=== PATIENT | male | born 1965 | race Caucasian/White ===

== ENCOUNTER 2023-11-20 18:12 | Emergency (ER) | payer OTHER, SELFPAY ==
[2023-11-20 18:21] VITALS: BP 132/78; PULSE 57; RESP 16; TEMP 36.6; O2SAT 97; BMI 20.2
[2023-11-20 18:41] LABS: Appearance Urine Slightly Cloudy (Clear); Bilirubin Urine 1+ (Negative); Blood Urine 3+ (Negative); Color Urine Brown (Yellow); Glucose Urine Negative (Negative); Ketones Urine Trace (Negative); Leukocyte Esterase Urine Negative (Negative); Nitrite Urine Negative (Negative); Protein Urine 3+ (Negative); Specific Gravity Urine >= 1.030 (1.000-1.030); Urobilinogen Urine 0.2 (0.2-1.0)
[2023-11-20 19:00] LABS: Amorphous Sediment Urine Moderate; Bacteria Urine Many; RBC Urine >100 (0-2); Squamous Epithelial Cell Urine Few (None-Few); WBC Urine 0-2 (0-5)
--- NOTE | 2023-11-20 19:37 | CRLHL7_ITS ---
For Patients: As a result of the Century Cures Act, medical imaging exams and procedure reports are released immediately into your electronic medical record. You may view this report before your referring provider. If you have questions, please contact your health care provider. INDICATION: Hematuria TECHNIQUE: CT abdomen and pelvis acquired with 71 cc Isovue 370 IV contrast. Permanently recorded images are archived. COMPARISON: None. FINDINGS: Lower chest: Unremarkable. Liver: Few scattered simple hepatic cysts. Multiple other too small to characterize subcentimeter hypodense foci throughout the liver. Normal liver contour. Gallbladder and bile ducts: Contracted gallbladder. No stones or inflammation. No biliary dilatation. Pancreas: Unremarkable. No mass or inflammation. Spleen: Unremarkable. Normal in size. No masses. Adrenal glands: Unremarkable. No nodules. Kidneys, Ureters, and Bladder: Unremarkable. No suspicious masses, stones, or hydronephrosis. Unremarkable ureters and bladder. GI tract: Unremarkable. Normal in caliber. No sign of inflammation. Normal appendix. Vasculature: Abdominal aorta is normal in caliber. Mesenteric arteries are patent. Dilated main portal vein measuring 15 mm. Lymph nodes: No lymphadenopathy. Peritoneum/Abdominal Wall: Unremarkable. No free air or significant free fluid. Pelvis: Mild prostatomegaly. Bones: Unremarkable for age. IMPRESSION: 1. No findings to explain the patient`s hematuria. No urolith or evidence of obstructive uropathy. No acute findings within the abdomen and pelvis. 2. Mild prostatomegaly. 3. dilated main portal vein measuring 15 mm. This is of unclear clinical significance. No evidence for cirrhosis or other evidence for portal hypertension. Please note that all CT scans at this facility use dose modulation, iterative reconstruction, and/or weight-based dosing when appropriate to reduce radiation dose to as low as reasonably achievable. Dictated by Jeovany Flores MD @ 11/20/2023 8:33:27 PM (Electronically Signed)
--- NOTE | 2023-11-20 19:42 | ED_ITS ---
HPI - Male Genitourinary General Date Seen: 11/20/23 Chief complaint: Urogenital Problems, Male Stated complaint: dark urine Time Seen by Provider: 11/20/23 19:30 Source: patient Mode of arrival: ambulatory Limitations: no limitations History of Present Illness HPI Narrative: Patient is a 57-year-old male with no pertinent medical problems presenting to the emergency department for hematuria. He states shortly prior to arrival he went to the bathroom and noticed a large amount of blood in his urine. This has never happened before to him. States he did have some dizziness around this time also but states he has had chronic issues with vertigo and this did not seem any different than his baseline. He quit smoking about 20-30 years ago. Denies dysuria. Denies abdominal pain, chest pain, shortness of breath, lightheadedness, weakness, numbness. Has not had any constipation or diarrhea. Does take Zofran and Prilosec for his chronic GERD which she says feels like it was acting up prior to arrival but has since resolved. Related Data Home Medications Medication Instructions Recorded Confirmed ondansetron 4 mg disintegrating 4 mg PO Q8H PRN 11/20/23 11/20/23 tablet Allergies Allergy/AdvReac Type Severity Reaction Status Date / Time No Known Drug Allergies Allergy Verified 11/20/23 18:21 Review of Systems Status of ROS: Reports: 10 or more systems reviewed and unremarkable except as noted in History and below Exam Narrative: Exam Narrative: Const: Well-nourished, Well-developed, in no distress Eyes: PERRL, no conjunctival injection, and symmetrical lids HENT: Atraumatic external nose and ears. Moist mucous membranes. Neck: Symmetric, trachea midline, No thyromegaly. CVS: RRR, No murmurs or gallops. Peripheral pulses 2+ and equal in all extremities RESP: Unlabored respiratory effort. Clear to auscultation bilaterally. GI: Nontender/Nondistended, No rebound or guarding. MSK:Extremities w/o deformity, Normal Active ROM Skin: Warm, Dry. No rashes or lesions. Neuro: Normal Muscle tone, No focal neurological deficits. Psych: Awake, Alert, & Oriented x3. Appropriate mood and affect. Const: Vital Signs, click to edit/add: Vital Signs - 24 hr 11/20/23 18:21 Temperature 97.9 F Pulse Rate [Pulse Oximeter] 57 L Respiratory Rate 16 Blood Pressure [Ri ght Upper Arm] 132/78 Pulse Oximetry 97 Oxygen Delivery Me thod Room Air Course Vital Signs Vital signs: Initial Vital Signs Temperature 97.9 F 11/20/23 18:21 Temperature Source Temporal Artery Scan 11/20/23 18:21 Pulse Rate 57 L 11/20/23 18:21 Respiratory Rate 16 11/20/23 18:21 Blood Pressure 132/78 11/20/23 18:21 Blood Pressure Mean 96 11/20/23 18:21 Pulse Oximetry 97 11/20/23 18:21 Oxygen Delivery Method Room Air 11/20/23 18:21 Vital Signs Temperature 97.9 F 11/20/23 18:21 Pulse Rate 57 L 11/20/23 18:21 Respiratory Rate 16 11/20/23 18:21 Blood Pressure 132/78 11/20/23 18:21 Pulse Oximetry 97 11/20/23 18:21 Oxygen Delivery Method Room Air 11/20/23 18:21 Temperature 97.9 F 11/20/23 18:21 Pulse Rate 57 L 11/20/23 18:21 Respiratory Rate 16 11/20/23 18:21 Blood Pressure 132/78 11/20/23 18:21 Pulse Oximetry 97 11/20/23 18:21 Oxygen Delivery Method Room Air 11/20/23 18:21 MDM - Male Genitourinary MDM Narrative Medical decision making narrative: Patient is a 57-year-old male presenting for hematuria. His urinalysis showed a large amount of blood in his urine. We did do a CT scan of the abdomen pelvis to look for any signs that would causes hematuria. Also ordered coags, CBC, BMP. Lab work all returned showing no concerning abnormalities. No signs of acute kidney injury. Does not appear to have a UTI. CT returned reviewed by myself and the radiologist. It does not show any obvious signs of what is causing the hematuria. There is some mild prostatomegaly and signs of portal hypertension but he has no signs of cirrhosis and no history of liver disease so this is of uncertain at the already. I informed him of all the findings. He states he urinated again and this time it was clear and no signs of blood. He is otherwise doing well and will follow-up with his primary care provider. Lab Data Labs: Lab Results 11/20/23 11/20/23 Range/Units 18:16 19:45 WBC 5.83 (4.50-11.00) K/uL RBC 4.65 (4.30-5.90) m/uL Hgb 14.3 (13.5-17.5) gm/dL Hct 43.0 (37.0-53.0) % MCV 93 (80-100) fL MCH 31 (26-34) pg MCHC 33 (32-36) gm/dL RDW Coeff of [place] 11.8 (11.5-15.5) % Plt Count 223 (140-440) K/uL Neut % (Auto) 61.0 (42.0-72.0) % Lymph % (Auto) 30.4 (20-44) % [place] % (Auto) 6.2 (0.0-11.0) % Eos % (Auto) 1.9 (0.0-7.0) % Baso % (Auto) 0.3 (0.0-3.0) % Neut # (Auto) 3.56 (1.7-7.0) K/uL Lymph # (Auto) 1.77 (0.90-2.90) K/uL [place] # (Auto) 0.40 (0.00-0.90) K/UL Eos # (Auto) 0.11 (0.00-0.50) K/uL Baso # (Auto) 0.02 (0.00-0.30) K/uL Abs Immat Gran (auto) 0.01 (0.00-0.30) K/uL Imm/Tot Granulo (auto) 0.2 % INR 0.97 (0.91-1.10) APTT 32 (23-33) Seconds Sodium 143 (135-149) mmol/L Potassium 4.1 (3.6-5.1) mmol/L Chloride 103 (96-114) mmol/L Carbon Dioxide 31 (20-32) mmol/L Anion Gap 9 (7-15) mEq/L BUN 19 (7-30) mg/dL Creatinine 0.8 (0.5-1.5) mg/dL Estimated Creat Clear 92.49 Estimated GFR 102 ml/min Glucose 91 (60-115) mg/dL Calcium 9.8 (8.4-10.6) mg/dL Total Bilirubin 0.3 (0.1-1.5) mg/dL AST 27 (12-35) U/L ALT 17 (4-50) U/L Alkaline Phosphatase 60 (40-150) U/L Total Protein 7.1 (6.0-8.3) g/dL Albumin 4.3 (3.3-5.0) g/dL Urine Color Brown A (Yellow) Urine Appearance Slightly Cloudy A (Clear) Urine pH 5.0 (5.0-8.5) Ur Specific [place] >= 1.030 (1.000-1.030) Urine Protein 3+ A (Negative) Urine Glucose (UA) Negative (Negative) Urine Ketones Trace A (Negative) Urine Blood 3+ A (Negative) Urine Nitrite Negative (Negative) Urine Bilirubin 1+ A (Negative) Urine Urobilinogen 0.2 (0.2-1.0) Ur Leukocyte Esterase Negative (Negative) Urine RBC >100 A (0-2) Urine WBC 0-2 (0-5) Ur Squamous Epith Cells Few (None-Few) Amorphous Sediment Moderate A (None) Urine Bacteria Many A (None) Discharge Plan Discharge Clinical Impression: Hematuria Qualifiers: Hematuria type: gross Qualified Code(s): R31.0 - Gross hematuria Patient Disposition: Home, Self-Care Condition: Stable Instructions: Hematuria (ED) Additional Instructions: Follow-up with your primary care provider and 2 weeks to have a repeat urinalysis done. CT scan did shows potential signs of portal hypertension but considering you have no signs of cirrhosis this is a unlikely to be of any clinical significance. Prescriptions: No Action ondansetron 4 mg tablet,disintegrating 4 mg PO Q8H PRN Follow Up/Referrals: Nigel Espinoza MD [Primary Care Provider] - Stand Alone Forms: [employer] Info Instructions
[2023-11-20 20:03] LABS: Chloride* 103 mmol/L (96-114)
[2023-11-20 20:04] LABS: Albumin* 4.3 g/dL (3.3-5.0); Potassium* 4.1 mmol/L (3.6-5.1); Sodium* 143 mmol/L (135-149)
[2023-11-20 20:06] LABS: Creatinine* 0.8 mg/dL (0.5-1.5); Est. Creatinine Clearance* 92.49; Estimated Glomerular Filt Rate 102 ml/min
[2023-11-20 20:07] LABS: Alanine Aminotransferase* 17 U/L (4-50); Alkaline Phosphatase* 60 U/L (40-150); Anion Gap 9 mEq/L (7-15); Aspartate Amino Transferase* 27 U/L (12-35); Bilirubin Total* 0.3 mg/dL (0.1-1.5); Blood Urea Nitrogen* 19 mg/dL (7-30); Carbon Dioxide* 31 mmol/L (20-32); Glucose* 91 mg/dL (60-115); Total Protein* 7.1 g/dL (6.0-8.3)
[2023-11-20 20:08] LABS: Calcium* 9.8 mg/dL (8.4-10.6)
[2023-11-20 20:27] LABS: INR 0.97 (0.91-1.10); Partial Thromboplastin Time* 32 Seconds (23-33); Prothrombin Time 13.5 Seconds
[2023-11-20 20:53] LABS: Basophils Absolute Auto 0.02 K/uL (0.00-0.30); Basophils Percent Auto 0.3 % (0.0-3.0); Eosinophils Absolute Auto 0.11 K/uL (0.00-0.50); Eosinophils Percent Auto 1.9 % (0.0-7.0); Hemoglobin* 14.3 gm/dL (13.5-17.5); Immature Granulocytes Abs Auto 0.01 K/uL (0.00-0.30); Immature Granulocytes Pct Auto 0.2 %; Lymphocytes Absolute Auto 1.77 K/uL (0.90-2.90); Lymphocytes Percent Auto 30.4 % (20-44); Mean Corpuscular HGB Conc 33 gm/dL (32-36); Mean Corpuscular Hemoglobin 31 pg (26-34); Mean Corpuscular Volume 93 fL (80-100); Monocytes Percent Auto 6.2 % (0.0-11.0); Neutrophils Absolute Auto 3.56 K/uL (1.7-7.0); Platelet Count* 223 K/uL (140-440); RDW Coefficient of Variation % 11.8 % (11.5-15.5); Red Blood Count 4.65 m/uL (4.30-5.90); White Blood Count* 5.83 K/uL (4.50-11.00)
[2023-11-20 21:17] LABS: Slide Review Reflex No
== END 2023-11-20 21:45 | disposition home or self-care (01) ==
PROVIDERS: Emergency Provider Student in an Organized Health Care Education/Training Program; PCP Family Medicine
DX: R31.9 Hematuria, unspecified (principal)
CPT/HCPCS: 36415; 74177; 80048; 80053; 81001; 85025; 85610; 85730; 87086; 99283; 99284; 99285; Q9967

== ENCOUNTER 2023-11-22 15:49 | Outpatient (CLI) | payer OTHER, SELFPAY ==
--- NOTE | 2023-11-22 16:00 | CRLHL7_ITS ---
For Patients: As a result of the Century Cures Act, medical imaging exams and procedure reports are released immediately into your electronic medical record. You may view this report before your referring provider. If you have questions, please contact your health care provider. HISTORY: DILATED PORTAL VN ON CT TECHNIQUE: Grayscale ultrasound examination of the abdomen and retroperitoneum with 2D and spectral analysis and color Doppler interrogation of the hepatic vessels. COMPARISON: CT 11/20/2023 FINDINGS: The liver is normal in size, measuring 12.6 cm in craniocaudal dimension. It is smooth in contour and normal in echogenicity. Incidental simple cyst noted measuring 1.1 cm. There is no significant biliary dilatation, and the common bile duct measures 4 cm. There is no ascites. The portal and hepatic veins are patent with normal direction of flow. The hepatic artery is patent with normal waveform. Splenic and superior mesenteric veins are patent with normal direction of flow. Intrahepatic IVC appears unremarkable. The gallbladder is free of calculi and sludge. There is no gallbladder wall thickening, pericholecystic fluid, or elicited sonographic Novak`s sign. The kidneys are normal in size. The right kidney measures 10.9 cm and the left kidney measures 10.9 cm. Normal echogenicity is seen in both kidneys. There is no hydronephrosis. No shadowing echogenic focus is identified to suggest nephrolithiasis.The spleen is normal in size, measuring 10.0 cm. The visualized pancreas is sonographically unremarkable. IMPRESSION: No portal vein thrombosis. Normal exam. Dictated by Hoang Ramirez MD @ 11/23/2023 9:12:15 AM (Electronically Signed)
== END 2023-11-22 15:50 | disposition home or self-care (01) ==
LOC: US 15:51
PROVIDERS: PCP Family Medicine; Visit Provider Family Medicine
DX: I87.9 Disorder of vein, unspecified (principal)
CPT/HCPCS: 93975

== ENCOUNTER 2024-06-13 08:01 | Outpatient (CLI) | payer OTHER, SELFPAY ==
--- OUTSIDE RECORDS SUMMARY | 2024-06-13 08:03 | XMS_ITS | Clinical Summary ---
Author Organization [facility] Address [place], [place] [address] Care Team Providers Care Telecommunications Network Planner Name Role Phone Nigel Espinoza MD Primary Care Provider [phone] Tavares Reagan MD Unavailable [phone] Allergies No known active allergies Medications Medication Sig Dispensed Refills Start Date End Date Status MULTIVITAMIN TAB take 1 tablet by oral route once daily with food 0 05/11/2009 Active ascorbic acid (VITAMIN C) 500 mg tablet Take 1 tablet by mouth once daily. 0 02/07/2012 Active omeprazole (PRILOSEC) 20 mg Delayed-Release capsule Take 20 mg by mouth two times daily before meals. Active cholecalciferol (VITAMIN D3) 2,000 unit capsule Take 2,000 units by mouth once every other day. Active sucralfate (CARAFATE) 1 gram tabletIndications: Gastroesophageal reflux disease, unspecified whether esophagitis present Take 1 Tablet (1 g) by mouth four times daily before meals and at bedtime. 120 Tablet 2 05/08/2024 Active traMADoL (ULTRAM) 50 mg tabletIndications: DDD (degenerative disc disease), lumbar Take 1 Tablet (50 mg) by mouth every 8 hours if needed for Pain. 12 Tablet 04/10/2024 05/28/2024 Discontinued (*Patient states no longer taking) Active Problems Problem Noted Date Diagnosed Date BPH with urinary obstruction 06/12/2018 Gastroesophageal reflux disease 08/16/2016 Overview: EGD 08/2016 normal L4-5 and L5-S1 disk bulges with annular tear 08/2012 Lumbar facet arthropathy 08/08/2012 Sensorineural hearing loss, bilateral 07/11/2012 Ulcerative colitis, unspecified 11/18/2009 Overview: Colonoscopy 10/2009 polyps repeat in 2 years Colonoscopy 10/2017 proctitis, repeat in 3 years Colonoscopy 01/2021 normal, repeat in 3 years Benign neoplasm of colon 11/18/2009 Overview: Colonoscopy 10/2009 polyps repeat in 2 years Colonoscopy 02/2012 minimal inflammation repeat in 2 years Colonoscopy 01/2014 mild proctitis repeat in 3 years Colonoscopy 10/2017 proctitis, repeat in 3 years Encounters Date Type Department Care Team Description 06/02/2024 3:00 PM CDT Office Visit [facility] [address] [place] [address] Robles Tubbs MD Throat Problem (/throat -feels like there is a sore in one spot//) 06/02/2024 Travel 05/28/2024 3:15 PM CDT Office Visit [facility] [address] [place] [address] Nigel Espinoza MD Follow Up (Recheck throat -feels like there is a sore in one spot) 05/28/2024 Travel 05/26/2024 Travel 05/23/2024 Telephone [facility] [address] [place] [address] Lillian Fabian AuD Questions (Hearing Aid ) 05/22/2024 Telephone [facility] [address] [place] [address] Lillian Fabian AuD Follow Up (hearing aide ) 05/19/2024 Telephone [facility] [address] [place] [address] Nigel Espinoza MD Appointment Request (Chronic sore throat ) 05/15/2024 Telephone [facility] [address] [place] [address] Lillian Fabian AuD Hearing Aid 05/08/2024 8:20 AM CDT Office Visit [facility] [address] [facility] [place] [address] Senait Benavides, Gi Problem (Ongoing acid reflux for over a month. has been taking prilosec otc as well as tums with some relief, but not resolving symptoms. ); Pharyngitis (For one week, thinks it could be related to acid reflux) 05/07/2024 8:00 AM CDT Office Visit [facility] [address] [facility] [place] [address] Lillian Fabian AuD Hearing Aid (DEVLIN check) 05/07/2024 Telephone [facility] [address] [place] [phone] Lillian Fabian AuD Hearing Aid 05/07/2024 Travel 04/10/2024 7:40 AM CDT Office Visit [facility] [address] [place] [address] Kyler Frank MD Musculoskeletal Problem (Follow up back pain/Consult left shoulder) 04/10/2024 Travel 04/07/2024 1:15 PM CDT Office Visit [facility] [address] [place] [address] Antonella Kat PA Throat Problem 04/07/2024 Travel from Last 3 Months Immunizations Name Administration Dates Next Due AMB INFLUENZA, IIV4 (AGE=>6MOS) MDV (Flu Clinic Only) 09/09/2019 COVID-19 vaccine (AI Exchange 30mcg/0.3mL) P F, MDV 12/07/2020,11/16/2020 HepA-HepB (Twinrix) 05/30/2019 Influenza RIV4 (Age 18+ Years) PRESERV FREE 09/28 Influenza, IIV3 (Age >=3 years) 10/15/2014 Influenza, IIV4 10/10/2023,09/16/2021 Influenza,CCIIV4 PRESERV FREE 08/23/2020 Pneumococcal Poly,23-Valent (Pneumovax) 11/04/19 21,08/10/2014 Pneumococcal conj 13-Valent (Prevnar 13) 020 Td (Age >=7 Years) 01/19/2004 Tdap 05/30/2019,02/07/2012 Zoster (Shingrix-RZV, recombinant) 07/20/2020, Family History Medical History Relation Name Comments GI Disease Brother 2 colitis Other Father COPD, CHF, AAA ruptured and took his live at age 79 Good Health Mother GI Disease Sister 2 colitis Relation Name Status Comments Brother 1 Alive Brother 2 Father (Age 79) Mother Alive Sister 1 Alive Sister 2 Alive Social History Tobacco Use Types Packs/Day Years Used Date Smoking Tobacco: Former Cigarettes 1 15 0 10/29/1974 - 10/29/1989 Smokeless Tobacco: Never Tobacco Cessation:Counseling Given: Yes Alcohol Use Standard Drinks/Week Comments Yes 1 (1 standard drink = 0.6 oz pur e alcohol) 1 beer per month PHQ-2 Answer Date Recorded PHQ-2 TOTAL SCORE 0 05/28/2024 Social Connections Answer Date Recorded Frequency of Communication with Friends and Fami ly 0 05/08/2024 Alcohol Use Answer Date Recorded How often do you have a drink containing alcohol ? 1 05/28/2024 How many drinks containing a lcohol do you have on a typical day when you are drinking? 0 05/28/2024 How often do you have five or more drinks on one occasion? 0 05/28/2024 Financial Resource Strain Answer Date R ecorded Difficulty of Paying Living Expenses 3 05/08/2024 Difficulty of Paying Living Expenses Not on file 05/08/2024 Food Insecurity Answer Date Recorded Worried About Running Out of Food in the Last Ye ar 1 05/08/2024 Transportation Needs Answer Date Record ed Lack of Transportation (Medical) 1 05/08/2024 Housing Stability Answer Date Recorded Unable to Pay for Housing in the Last Year 1 05/08/2024 Sex and Gender Information Value Date Recorded Sex Assigned at Not on file Gender Identity Not on file Sexual Orientation Not on file Obstetrics History Last Filed Vital Signs Vital Sign Reading Time Taken Comments Blood Pressure 112/70 05/28/2024 3:21 PM CDT Pulse 60 05/28/2024 3:21 PM CDT Temperature 36.7 ??C (98 ??F) 05/28/2024 3:24 PM CDT Respiratory Rate 16 11/21/2021 1:14 PM S[employer] YEAR [employer] Oxygen Saturation 96% 05/28/2024 3:21 PM CDT Inhaled Oxygen Concentration - - Weight 66 kg (145 lb 8 oz) 05/28/2024 3:21 PM CD T Height 180.6 cm (5' 11.1) 06/21/2022 9:30 AM CD T Body Mass Index 20.23 06/21/2022 9:30 AM CDT Plan of Treatment Upcoming Encounters Date Type Department Care Team (Late st Contact Info) Description 06/23/2024 12:30 PM CDT Office Visit [facility] [address] [place] [address] [facility] [address] [place] [address] 07/07/2024 2:00 PM CDT Office Visit [facility] [address] [place] [address] [facility] [address] [place] [address] 08/14/2024 2:00 PM CDT Office Visit [facility] [address] [place] [address] Angel Morse MD [address] [place] [address] Health Maintenance Due Date Last Done Comments HIV for age 15-65 1978 BMI (ht and wt on same day) for age 18+ 06/21/2023 06/21/2022, 12/20/2020, 09/17/2020, Additional history exists COVID-19 vaccine series ( season) 2023 09/19/2021, 12/07/2020, 11/16/2020 Colonoscopy through age 75 02/10/202402/09, 02/09/2021, 11/06/2017, Additional history exists Influenza for age 50-64 06/29/2024 10/10/20 23, 10/11/2022, 09/16/2021, Additional history exists Depression screening for age 12+ 05/28/2025 05/28/2024, 05/15/2024, 06/21/2022, Additional history exists Lipids for age 45-75 08/11/2027 08/11/2022, 07/28/2021, 10/03/2018, Additional history exists Tetanus booster 05/30/2029 05/30/2019, 01/27, 01/19/2004 Hepatitis C screening for age 18-79 Completed 10/03/2018, 04/04/2012 Tdap Completed 05/30/2019, 02/07/2012 Zoster (shingles) series for age 50+ Completed 07/20/2020, 04/20/2020 Pneumococcal series for age 6-64 Aged Out 11/04/2020, 10/31/2019, 08/10/2014 No longer eligible based on patient's age to complete this topic Procedures Procedure Name Priority Date/Time Associated Diagnosis Comments THROAT RAPID STREP ONLY CLINIC Routine 04/07/2024 1:33 PM CDT Sore throat LIPID PANEL W REFLEX MEASURED LDL Routine 08/11/2022 8:27 AM CDT Lipid screening COLONOSCOPY 02/09/2021 8:02 AM CDT ANTI HCV Routine 10/03/2018 8:05 AM [employer] YE[employer] Encounter for hepatitis C screening test for low risk patient from Last 3 Months or Most Recently Relevant to Health Maintenance Results * THROAT RAPID STREP ONLY CLINIC (04/07/2024 1:33 PM CDT) THROAT RAPID STREP A ANTIGEN Negative 04/07/2024 1:49 PM CDT [facility] FROM THROAT / Unknown Non-Blood / Unknown 04/07/2024 1:33 PM CDT 04/07/2024 1:39 PM CDT Antonella OCHOA [facility] [address] [place] [address], * LIPID PANEL W REFLEX MEASURED LDL (08/11/2022 8:27 AM CDT) CHOLESTEROL,TOTAL 183 100 - 199 mg/dL 08/11/2022 8:03 PM CDT [facility] TRIGLYCERIDES 55 <150 mg/dL 08/11/2022 8:03 PM CDT [facility] HDL CHOLESTEROL 75 >40 mg/dL 8:03 PM CDT [facility] NON-HDL CHOLESTEROL 108 <145 mg/dl 08/11/2022 8:03 PM CDT [facility] CHOL/HDL RATIO 2.44 <4.50 08/11/2022 8:03 PM CDT [facility] LDL CHOLESTEROL 97 <=130 mg/dL 08/11/2022 8:03 PM CDT [facility] VLDL CHOLESTEROL 11 <=30 mg/dL 08/11/2022 8:03 PM CDT [facility] PROVIDER ORDERED STATUS RANDOM 08/11/2022 8:03 PM CDT [facility] Blood BLOOD SPECIMEN / Unknown Venipuncture / Unknown 08/11/2022 8:27 AM CDT 08/11/2022 8:28 AM CDT Nigel Espinoza MD CHEMISTR[facility] [address] [place] [address], [place] * COLONOSCOPY (02/09/2021 8:02 AM CDT) 02/09/2021 8:02 AM CDT Narrative Transcriptions Angel Morse MD - 02/09/2021 9:00 AM CDT Patient Name: Mukesh Matias Procedure Date: 02/09/2021 Gender: Male Date of : 1965 Admit Type: Outpatient Procedure: Colonoscopy Proceduralist: Angel Morse MD , Susana Katz (Nurse) Indications/Pre-Op Diagnosis: High risk colon cancer surveillance:Ulcerative left sided colitis of 8 (or more) years duration, Last colonoscopy: October 2017, Personal history of colonic polyps Medications: Fentanyl 200 micrograms IV, Midazolam 4 mgIV, The level of sedation administered wasmoderate Procedure Description: The patient had risks, benefits and alternatives explained to andgave informed consent. The patient had a stable cardiopulmonary status and judged an adequate candidate for conscious sedation. The [id number] was passed through the anus and advanced tothe cecum, identified by appendiceal orifice and ileocecal valve. The colonoscopy was performed without difficulty. The patient toleratedthe procedure well. The quality of the bowel preparation was good. The ileocecal valve, appendiceal orifice, and rectum were photographed. Complications: No immediate complications. Estimated Blood Loss & Specimen: Estimated blood loss: none. Specimen collected - Yes and sent to Laboratory Findings: The perianal and digital rectal examinations were normal. The entire examined colon appeared normal on direct and retroflexion views. Background biopsies were taken for histology with a cold forceps from the ascending colon, transverse colon, descending colon andrectosigmoid colon. These biopsy specimens from the ascending colon, transverse colon, descending colon and rectosigmoid colon were sent toPathology. These biopsies were obtained randomly (in a non-targeted manner) for ulcerative colitis surveillance. Impressions/Post-Op Diagnosis: - The entire examined colon is normal on direct and retroflexionviews. - Background biopsies were taken from the ascending colon, transverse colon, descending colon and rectosigmoid colon. Recommendation: - Patient has a contact number available for emergencies. The signsand symptoms of potential delayed complications were discussed with the patient. Return to normal activities tomorrow. Written discharge instructions were provided to the patient. - Resume previous diet. - Continue present medications. - Await pathology results. - Repeat colonoscopy in 3 years for surveillance. Moderate Sedation: Moderate (conscious) sedation was administered by the endoscopy nurse and supervised by the endoscopist. The following parameters were monitored: oxygen saturation, heart rate, respiratory rate, blood pressure, adequacy of pulmonary ventilation and reponse to care. Please refer to the patient's medical record flowsheets and nursing notes for moderate sedation details. Total physician intraservice time was 26 minutes. Angel Morse MD 02/09/2021 9:00:03 AM This report has been signed electronically. Note Initiated On: 02/09/2021 8:02 AM Procedure Code(s): --- Professional --- 29653, Colonoscopy, flexible; with biopsy, single or multiple Diagnosis Code(s): --- Professional --- K51.50, Left sided colitis withoutcomplications Z86.010, Personal history of colonicpolyps CPT copyright 2019 [employer]. All rights reserved. The codes documented in this report are preliminary and upon marble cleaner reviewmay be revised to meet current compliance requirements. Scope In: 8:27:43 AM Scope Withdrawal Time 0 hours 12 minutes 44 seconds Scope Out: 8:51:40 AM Angel Morse MD PROCEDURE ORD * ANTI HCV (10/03/2018 8:05 AM [employer] YE[employer]) HEPATITIS C ANTIBODY Non-React tarik Non-React tarik 10/03/2018 3:22 PM [employer] YE[employer] [facility] Comment:Antibodies to HCV no t detected; does not exclude the possibility of exposure to HCV. Blood BLOOD SPECIMEN / Unknown Venipuncture / Unknown 10/03/2018 8:05 AM [employer] 10/03/2018 8:08 AM [employer] YE[employer] Nigel Espinoza MD SEND OUTS [facility] [address] [place] [address], from Last 3 Months or Most Recently Relevant to Health Maintenance Care Teams Telecommunications Network Planner Relationship Specialty Start Date End Date Nigel Espinoza MD [address] [place] [address] PCP - General 11/17/09 [place] [address] [place] [address] Otolaryngology Surgery - Otolaryngology 11/14/12
--- OUTSIDE RECORDS SUMMARY | 2024-06-13 08:04 | XMS_ITS | Data Portability ---
Author Organization [place] [facility] Address [address] [place] [address] Care Team Providers Care Jig Mill Operator Name Role Phone BRIAN VÁZQUEZ Primary Care Provider [phone] Assessment Encounter Date Assessment Date Assessment LastModified by Organization Details LastModified Time 11/28/2023 11/28/2023 57 yoM with history of BPH, new issue of gross hematuria [email or web address] Not available 11/28/2023 18:02:58 04/02/2024 04/02/2024 58 yoM with history of BPH, new issue of gross hematuria [email or web address] Not available 03/31/2024 15:44:16 Plan of Treatment Reminders Order Date Submit Date Provider Last Modified By Organization Details Last Modified Time Details Appointments None recorded . Lab urinalys is, dipstick 2023 024 [email or web address] [facility], [address] [place], [address], 16:07:05 Referral None recorded . Procedures None recorded . Surgeries None recorded . Imaging None recorded . Medication Orders finaster audrey 5 mg tablet 2023 024 [email or web address] [id number] [facility] [employer], [address], [place], [address], 15:28:26 Patient TargetsNo targets recorded. Patient InstructionsNo instructions recorded. Reason for Referral None Reported. Results Created Date Observation Date Name Description Value Unit Range Abnormal Flag LastModifiedBy Organization Detail LastModifiedTime 11/28/19 24 11/28/2023 urina lysis , dipst ick Color-Status Yellow Not Available [facility] [address], [place], [address], 11/28/2023 16:05:49 11/28/19 24 11/28/2023 urina lysis , dipst ick Clarity-Stat us Clear Not Available [facility] [address], [place], [address], 11/28/2023 16:05:49 11/28/19 24 11/28/2023 urina lysis , dipst ick Glucose-Stat us Negati ve Not Available [facility] [address], [place], [address], 11/28/2023 16:05:49 11/28/19 24 11/28/2023 urina lysis , dipst ick Bilirubin-St atus Negati ve Not Available [facility] [address], [place], [address], 11/28/2023 16:05:49 11/28/19 24 11/28/2023 urina lysis , dipst ick Ketones-Stat us Negati ve Not Available [facility] [address], [place], [address], 11/28/2023 16:05:49 11/28/19 24 11/28/2023 urina lysis , dipst ick Nitrates-Sta tus negati ve Not Available [facility] [address], [place], [address], 11/28/2023 16:05:49 11/28/19 24 11/28/2023 urina lysis , dipst ick Blood-Status Negati ve Not Available [facility] [address], [place], [address], 11/28/2023 16:05:49 11/28/19 24 11/28/2023 urina lysis , dipst ick Leuko-Status Negati ve Not Available [facility] [address], [place], [address], 11/28/2023 16:05:49 Result Notes None recorded. Procedures Surgical History Date Name Laterality Status Provider Name and Address Organization Details Recorded Time 4 Bladder Scan completed Any montiel, [facility] 04/02/2024 15:33:42 4 Cystoscopy- male completed Chandrakant Figueredo MD [address], [place], [address], [facility] 11/28/2023 18:02:40 4 Sulfa post Cysto completed Any montiel, [facility] 11/28/2023 16:32:21 4 Bladder Scan completed Yvon montiel [facility] 11/28/2023 16:05:44 9 Colonoscopy completed Yvon montiel, [facility] 11/28/2023 16:03:28 Imaging Results None recorded. Procedure Notes None recorded. Medical Equipment None Reported. Allergies No known drug allergies Medications Name Sig Start Date Stop Date Status Note LastModified by Organization Details LastModified Time azithromyci n 250 mg tablet TAKE 2 TABLETS BY MOUTH TODAY, THEN TAKE 1 TABLET DAILY FOR 4 DAYS DIRECTED 11/28 completed Not Available Not Available Not Available meloxicam 15 mg tablet TAKE 1 TABLET BY MOUTH EVERY DAY 11/28 completed Not Available Not Available Not Available penciclovir 1 % topical cream APPLY EVERY 2-4 HOURS 04/02 completed Not Available Not Available Not Available imiquimod 5 % topical cream packet APPLY TO WART ON FINGER ON MON, WED, & FRI AT BEDTIME FOR 16 WEEKS.CAN APPLY WITH QTIP. 04/02 completed Not Available Not Available Not Available hydrocortis one 2.5 % topical ointment APPLY TO AFFECTED AREA OF MOUTH TWICE DAILY FOR 2 WEEKS 04/02 completed Not Available Not Available Not Available ketoconazol e 2 % topical cream APPLY TO CORNERS OF MOUTH AT BEDTIME 04/02 completed Not Available Not Available Not Available ondansetron 4 mg disintegr[address] ing tablet PLACE TAKE 1 TABLET (4 MG) ON THE TONGUE EVERY 8 HOURS NEEDED FOR NAUSEA AND VOMITING 04/02 completed Not Available Not Available Not Available finasteride 5 mg tablet take one tablet by mouth daily 04/02 completed Not Available Not Available Not Available mesalamine 1,000 mg rectal suppository INSERT 1 SUPPOSITO RY (1,000 MG) RECTALLY AT BEDTIME. 04/02 completed Not Available Not Available Not Available Vitals Date Recorded Body height Body mass index (BMI) Body weight Provider Name and Address Organization Details Last Updated DateTime 11/28/2023 180.34 cm 20.9 kg/m2 58843.86 g Yvon Nazario [facility] 11/28/2023 15:58:46 Date Recorded Body height Body mass index (BMI) Body weight Provider Name and Address Organization Details Last Updated DateTime 04/02/2024 180.34 cm 19.5 kg/m2 49030.93 g Any Lima [facility] 04/02/2024 15:28:05 Social History Question Answer Notes LastModified by Organizat ion Details LastModified Time Tobacco Smoking Status Former Smoker Yvon Nazario [facility] 11/28/2023 16:01:48 What Is Your Level Of Alcohol Consumption? Occasional Information not available 04/02/2024 What Is Your Level Of Caffeine Consumption? Moderate Information not available 11/28/2023 Are You Currently Employed? Yes Information not available 11/28/2023 When Did You Quit Smoking? 16+yearssincel astcigarette Information not available 11/28/2023 Recreational Drug Use Yes Pot & Gumies Information not available 11/28/2023 What Was The Date Of Your Most Recent Tobacco Screening? 04/02/2024 Information not available 04/02/2024 Have You Ever Been Counseled For Unhealthy Alcohol Use? No Information not available 11/28/2023 What Is Your Relationship Status? Information not available 11/28/2023 How Much Tobacco Do You Smoke? 1 PPD Information not available 11/28/2023 Do You Use Any Illicit Or Recreational Drugs? No Information not available 11/28/2023 Has Tobacco Cessation Counseling Been Provided? No Information not available 11/28/2023 Do You Or Have You Ever Used Any Other Forms Of Tobacco Or Nicotine? No Information not available 11/28/2023 Sex: Unknown Functional Status None recorded. Mental Status None recorded. Family History Relationship Description Onset Age of this Age Resolved Age Notes Father Family history of ca rdiac disorder Father Family history of Hypertension Brother Family history of di abetes mellitus Medical History Condition Response Sexually Transmitted Infection N Diabetes N Other N Bleeding Disorder N High Blood Pressure N Kidney Stones N High Cholesterol N GERD/Acid Reflux N Heart Disease N Cancer N Depression N Lung Disease N Past Encounters Encounter ID Performer Location Encounter Start Date Encounter Closed Date Diagnosis/Indication Diagnosis SNOMED-CT Code [id number] Chandrakant Figueredo MD [facility] [address] [place] [address] 11/28/2023 15:39:21 12/12/2023 16:55:16 Dave hematuria [id number] Lower urin franki tract symptoms due to benign prostatic hypertrophy [id number] Chandrakant Figueredo MD [facility] [address] [place] [address] 04/02/2024 14:57:07 04/03/2024 10:28:22 Dave hematuria [id number] Lower urin franki tract symptoms due to benign prostatic hypertrophy [id number] Health Concerns Section Related Observation LastModified by Organization Detai ls LastModified Time None Recorded Concern Status LastModified by Organization Details LastModified Time None Recorded Advance Directives Directive None Recorded Payers Encounter Date Sequence Insurance Name Policy Number Policy Abraham Covered Member ID Abraham Member ID Guarantor Name 11/28/2023 1 [employer] - [facility] - CHOICE [employer] ([id number]) [id number] Mukesh Matias [id number] Mukesh Matias 04/02/2024 1 [employer] [facility] - [employer] ([id number]) [id number] Mukesh Matias [id number] Mukesh Matias Notes Date Note Type Note Provider Name and Address Organization Details Recorded Time 11/28/2023 text/html HPI Notes: This is a 57 year old male who is referred by Dr. Neal Mcknight for the evaluation and management of gross hematuria. Patient previously saw my partner, Dr. Gonzalez regarding voiding dysfunction. Last seen 01/31/2021. Patient reports that he had sudden onset of painless gross hematuria that lasted a few hours and then dissipated by the time he had exited the emergency department. Patient underwent a CT abdomen pelvis while there which is available for my review (patient brings a disc with him)? ? No evidence of any hydronephrosis, renal stones, renal masses, or ureteral filling defects. Bladder is moderately distended with some high attenuation material within the bladder most likely related to blood clot. The patient is a former smoker. 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 He denies any history of urologic malignancies. No history of nephrolithiasis. No history of prior pelvic radiation. Chandrakant Figueredo MD [address] [place] [address],[address], [place], [address], [facility] 11/28/2023 18:04:53 04/02/2024 text/html HPI Notes: This is a 58 year old male who is referred by Dr. Neal Mcknight for the evaluation and management of gross hematuria. Patient previously saw my partner, Dr. Gonzalez regarding voiding dysfunction. Last seen 01/31/2021. Patient reports that he had sudden onset of painless gross hematuria that lasted a few hours and then dissipated by the time he had exited the emergency department. Patient underwent a CT abdomen pelvis while there which is available for my review (patient brings a disc with him)? ? No evidence of any hydronephrosis, renal stones, renal masses, or ureteral filling defects. Bladder is moderately distended with some high attenuation material within the bladder most likely related to blood clot. The patient is a former smoker. 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 He denies any history of urologic malignancies. No history of nephrolithiasis. No history of prior pelvic radiation. 04/02/2024: Here for follow up hematuria, urinary frequency, weak urinary stream, and nocturia. No recurrence of his hematuria. Did not start finasteride due to sexual adverse effects. Chandrakant Figueredo MD [address], [place], [address], [facility] 04/02/2024 18:10:13
--- NOTE | 2024-06-13 08:15 | CRLHL7_ITS ---
For Patients: As a result of the Century Cures Act, medical imaging exams and procedure reports are released immediately into your electronic medical record. You may view this report before your referring provider. If you have questions, please contact your health care provider. INDICATION: Dysphagia, sore on left side of throat TECHNIQUE: Modified barium swallow. Fluoroscopic time 1 minute 24 seconds. FINDINGS/IMPRESSION: Mild aspiration occurred during the exam with cough reflex. No obstruction of flow of barium. Delayed clearance of the oropharynx noted. No hiatal hernia or mucosal irregularity. Dictated by Hoang Ramirez MD @ 06/13/2024 11:51:48 AM (Electronically Signed)
== END 2024-06-13 08:02 | disposition home or self-care (01) ==
LOC: RAD 08:01
PROVIDERS: PCP Family Medicine; Visit Provider Otolaryngology
DX: R13.10 Dysphagia, unspecified (principal)
CPT/HCPCS: 74221